=== PATIENT | male | born 1960 | race African-American/Black ===

== ENCOUNTER → 2019-08-09 | Day surgery (SDC) | payer BC ==
[~2019-08-09] MED LIST: FENTANYL CITRATE/PF 100MCG/2 ML INJ ONE; GLIPIZIDE5 MG PO; HYOSCYAMINE 0.125 MG TAB ONE; INSULIN REGULAR, HUMAN 100 UNIT/1 ML 3ML VIAL ONE; LIDOCAINE HCL 2% LOCAL INJ 5 ML SDV VIAL INJ ONE; MIDAZOLAM HCL 2 MG/2 ML VIAL ONE; PROPOFOL IV EMULSION 10 MG/ML 50 ML VIAL ONE
[2019-08-09 11:16] VITALS: BP 144/93
--- NOTE | 2019-08-09 12:53 | Operative Report ---
DATE OF PROCEDURE: 08/09/2019 SURGEON: Ilya Blanco MD PROCEDURE: Colonoscopy and polypectomy. INDICATIONS FOR COLONOSCOPY: Colorectal cancer screening. MEDICATIONS: The patient was done under MAC, please see anesthesiologist's note. PROCEDURE IN DETAIL: With the patient in the left lateral decubitus position, flexible fiberoptic Olympus colonoscope was inserted into the rectum with ease and advanced all the way to the cecum. Mucosa overlying the cecum appeared to be within normal limits. An approximately 8 mm sessile polyp was removed per snare electrocautery from the proximal ascending colon and site was hemoclipped x1. The rest of the ascending and transverse and descending appeared to be within normal limits. Seven polyps were snared and three polyps were hot biopsied from the sigmoid colon and 5 polyps were hot biopsied from the rectum. The scope was then retroflexed into the distal rectum. Small internal hemorrhoids were noted, none of which was actively bleeding. The scope was then straightened out, it was subsequently withdrawn. The patient tolerated the procedure well. A total of 16 polyps were removed. IMPRESSION: 1. Ascending colon polyp snared, site hemoclipped x1. 2. Sigmoid colon polyps x10, seven snared and three hot biopsied. 3. Rectal polyps x5, hot biopsied. 4. Internal hemorrhoids, none actively bleeding. PLAN: Follow up histology. Initiate high-fiber, low-fat diet. Initiate high-fiber supplement. The patient might benefit from a followup colonoscopy in one year. Ilya Blanco MD [facility] [place] /[id number] cc: Benny Vidales MD
== END | disposition home or self-care (01) ==
LOC: ENDO 07:26
PROVIDERS: ATTEND Internal Medicine Gastroenterology
DX: Z12.11 Encounter for screening for malignant neoplasm of colon (principal); D12.7 Benign neoplasm of rectosigmoid junction; D12.5 Benign neoplasm of sigmoid colon; D12.2 Benign neoplasm of ascending colon; Z72.0 Tobacco use; K64.8 Other hemorrhoids; Z01.810 Encounter for preprocedural cardiovascular examination; E11.9 Type 2 diabetes mellitus without complications; Z79.4 Long term (current) use of insulin; E78.5 Hyperlipidemia, unspecified
CPT/HCPCS: 36415; 45384; 45385; 82948; 93005; J2001; J2250; J2704; J3010; 45378; J1817

== ENCOUNTER → 2020-10-16 | Day surgery (SDC) | payer BC ==
[~2020-10-16] MED LIST changes: -FENTANYL CITRATE/PF 100MCG/2 ML INJ ONE; -INSULIN REGULAR, HUMAN 100 UNIT/1 ML 3ML VIAL ONE; -LIDOCAINE HCL 2% LOCAL INJ 5 ML SDV VIAL INJ ONE; -MIDAZOLAM HCL 2 MG/2 ML VIAL ONE; -PROPOFOL IV EMULSION 10 MG/ML 50 ML VIAL ONE
== END | disposition home or self-care (01) ==
LOC: OR 09:19
PROVIDERS: ATTEND Internal Medicine Gastroenterology
DX: Z09 Encounter for follow-up examination after completed treatment for conditions other than malignant neoplasm (principal); Z86.010 Personal history of colon polyps; Z53.9 Procedure and treatment not carried out, unspecified reason; Z01.810 Encounter for preprocedural cardiovascular examination; Z01.812 Encounter for preprocedural laboratory examination; Z20.828 Contact with and (suspected) exposure to other viral communicable diseases
CPT/HCPCS: 36415; 82948; 93005; U0002

== ENCOUNTER → 2020-10-17 | Day surgery (SDC) | payer BC ==
[~2020-10-17] MED LIST changes: +FENTANYL CITRATE/PF 100MCG/2 ML INJ ONE; +GLUCAGON FOR INJ 1 MG VIAL ONE; +INSULIN REGULAR, HUMAN 100 UNIT/1 ML 3ML VIAL ONE; +LIDOCAINE HCL 2% LOCAL INJ 5 ML SDV VIAL INJ ONE; +MIDAZOLAM HCL 2 MG/2 ML VIAL ONE; +PROPOFOL IV EMULSION 10 MG/ML 20 ML VIAL ONE
[2020-10-17 16:20] VITALS: BP 114/77
== END | disposition home or self-care (01) ==
LOC: OR 13:06
PROVIDERS: ATTEND Internal Medicine Gastroenterology
DX: Z09 Encounter for follow-up examination after completed treatment for conditions other than malignant neoplasm (principal); D12.5 Benign neoplasm of sigmoid colon; D12.8 Benign neoplasm of rectum; K64.8 Other hemorrhoids; G47.33 Obstructive sleep apnea (adult) (pediatric); E11.9 Type 2 diabetes mellitus without complications; F17.210 Nicotine dependence, cigarettes, uncomplicated; Z01.812 Encounter for preprocedural laboratory examination; Z20.828 Contact with and (suspected) exposure to other viral communicable diseases; Z79.84 Long term (current) use of oral hypoglycemic drugs
CPT/HCPCS: 36415 ×2; 45380; 45384; 45385; 82948 ×2; 93005; J1610; J2001; J2250; J2704; J3010; U0002; 45378; J1817

== ENCOUNTER → 2022-09-23 | Day surgery (SDC) | payer BC ==
[~2022-09-23] MED LIST changes: +ALCLOMETASONE D15 GM TOP; -GLUCAGON FOR INJ 1 MG VIAL ONE; -HYOSCYAMINE 0.125 MG TAB ONE; +HYOSCYAMINE SULFATE 0.5 MG/ML INJ ONE; -INSULIN REGULAR, HUMAN 100 UNIT/1 ML 3ML VIAL ONE; -LIDOCAINE HCL 2% LOCAL INJ 5 ML SDV VIAL INJ ONE; +METFORMIN HCL500 MG PO; +METRONIDAZOLE250 MG PO
[2022-09-23 10:40] VITALS: BP 120/79
== END | disposition home or self-care (01) ==
LOC: OR 07:03
PROVIDERS: ATTEND Internal Medicine Gastroenterology
DX: D12.3 Benign neoplasm of transverse colon (principal); K64.8 Other hemorrhoids; K59.09 Other constipation; K62.89 Other specified diseases of anus and rectum; R63.4 Abnormal weight loss; Z71.3 Dietary counseling and surveillance; E11.9 Type 2 diabetes mellitus without complications; Z01.810 Encounter for preprocedural cardiovascular examination; Z79.84 Long term (current) use of oral hypoglycemic drugs; Z68.26 Body mass index [BMI] 26.0-26.9, adult
CPT/HCPCS: 36415; 45380; 45385; 82948; 93005; J1980; J2250; J2704; J3010; 45378

== ENCOUNTER → 2022-10-07 | Outpatient (CLI) | payer BC ==
[~2022-10-07] MED LIST changes: -FENTANYL CITRATE/PF 100MCG/2 ML INJ ONE; -HYOSCYAMINE SULFATE 0.5 MG/ML INJ ONE; +IOPAMIDOL 370 MG/ML 100 ML INFUS..BTL INJ ONE; -MIDAZOLAM HCL 2 MG/2 ML VIAL ONE; -PROPOFOL IV EMULSION 10 MG/ML 20 ML VIAL ONE
[2022-10-07 08:30] LABS: CREATININE, SERUM 1.02 mg/dL (0.72-1.25)
== END ==
LOC: CT 07:30
PROVIDERS: ATTEND Internal Medicine Gastroenterology
DX: K63.5 Polyp of colon (principal); K64.8 Other hemorrhoids
CPT/HCPCS: 36415; 74177; 82565; 84520; Q9967